=== PATIENT | female | born 1960 | race Caucasian/White ===

== ENCOUNTER 2017-12-04 08:48 | Day surgery (SDC) | payer OTHER ==
--- NOTE | 2017-12-01 11:59 | RAD REPORT ---
EXAM DESCRIPTION: RAD - Chest Pa And Lat (2 Views) - 12/01/2017 11:23 am CLINICAL HISTORY: Diabetes, hypertension, breast cancer Chest pain. COMPARISON: CHEST SINGLE VIEW dated 06/10/2011 FINDINGS: The lungs are clear. The heart is upper limit normal in size. Left-sided port catheter its tip in the SVC. No displaced fractures. IMPRESSION: No acute or concerning finding suspected.
[2017-12-01 12:47] LABS: Absolute Lymphocytes (CBC) 2.9 K/uL (0.7-4.9); Absolute Monocytes 0.5 K/uL (0.1-1.3); Absolute Neutrophil 4.6 K/uL (1.8-8.0); Basophils % 0.9 % (0-1.3); Eosinophils % 4.9 % (0-4.4); Hematocrit 42.3 % (36.0-45.0); Lymphocytes % 34.5 % (15.3-44.8); MCH 29.9 pg (27.0-35.0); MCV 88.1 fL (80-100); MPV 9.1 fL (7.6-11.3); Monocytes % 5.6 % (3.3-12.3)
[2017-12-01 12:49] LABS: BUN Blood Urea Nitrogen 13 mg/dL (6-20); Bicarbonate 24 mEq/L (21-31); Glucose Level 152 mg/dL (65-120); Potassium 4.6 mEq/L (3.6-5.0); Sodium Level 134 mEq/L (135-145)
--- NOTE | 2017-12-01 14:06 | EKG ---
Test Date: 2017-12-01 Test Time: 11:28:26 Qa Engineer: JOSE MARTIN MEASUREMENT RESULTS: Intervals: Rate: 81 HI: 170 QRSD: 86 QT: 388 QTc: 450 [place]: P: 17 HI: 170 QRS: -10 T: 0 INTERPRETIVE STATEMENTS: Sinus rhythm with premature atrial complexes with aberrant conduction Minimal voltage criteria for LVH, may be normal variant Borderline ECG No previous ECG available for comparison Electronically Signed On 12-01-17 14:05:46 CDT by Prashant Shah
--- OUTSIDE RECORDS SUMMARY | 2017-12-04 08:56 | XMS REPORT | Clinical Summary ---
:1960 Author Organization [facility] Address [address] [place] [address] Care Team Providers Name Role Phone Abhishek Churchill MD Primary Care Provider Allergies Active Allergy Reactions Severity Noted Date Comments Prochlorperazine Other (See Comments) High 05/05/2016 "hallucinations" Current Medications Prescription Sig. Disp. Refills Start Date End Date Status SYNTHROID 25 mcg tablet Take 1 tablet 11/02/2015 Active by mouth every evening. losartan (COZAAR) 100 Take 1 tablet 11/02/2015 Active MG tablet by mouth every evening. metFORMIN (GLUCOPHAGE) Take 1,000 mg 11/06/2015 Active 1000 MG tablet by mouth 2 (two) times a day. metoprolol succinate XL Take 50 mg by 11/02/2015 Active (TOPROL-XL) 50 MG 24 hr mouth 2 (two) tablet times a day. propranolol (INDERAL) Take 1 tablet 11/02/2015 Active 10 MG tablet by mouth every evening. liothyronine (CYTOMEL) Take 5 mcg by Active 5 MCG tablet mouth every evening. TRULICITY 1.5 mg/0.5 mL Inject 1.5 mg 3 05/17/2016 Active pen injector under the skin every 7 days. (On Monday) fluconazole (DIFLUCAN) Take 200 mg by Active 200 MG tablet mouth every evening. minocycline Take 100 mg by Active (MINOCIN,DYNACIN) 100 mouth 2 (two) MG capsule times a day as needed. loratadine (CLARITIN) Take 10 mg by Active 10 mg tablet mouth every evening. levoFLOXacin (LEVAQUIN) Take 500 mg by Active 500 MG tablet mouth every evening. cholecalciferol, Take 2,000 Active vitamin D3, (VITAMIN Units by mouth D3) 2,000 unit capsule every evening. capsule ascorbic acid, vitamin Take 1,000 mg Active C, (vitamin C) 1000 MG by mouth every tablet evening. guaiFENesin (MUCINEX) Take 1 tablet Active 1,200 mg tablet by mouth every extended release 12hr evening. ACETYLCYSTEINE (NAC Take 1 tablet Active ORAL) by mouth every evening. amLODIPine (NORVASC) 5 Take 1 tablet 30 tablet 11 10/31/2016 10/31/2017 mg tablet (5 mg total) by mouth daily. 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 Encounters Date Type Specialty Care Team Description 04/20/2017 Infusion Neurology Abhishek Churchill Common variable immunodeficiency (Primary Dx) 04/18/2017 Infusion Neurology Abhishek Churchill Common variable immunodeficiency (Primary Dx) 03/28/2017 Infusion Neurology Abhishek Chruchill Common variable immunodeficiency (Primary Dx) 03/22/2017 Infusion Neurology Abhishek Churchill Common variable immunodeficiency (Primary Dx) 02/08/2017 Infusion Neurology Abhishek Churchill Common variable immunodeficiency (Primary Dx) 02/06/2017 Infusion Neurology Abhishek Churchill Common variable immunodeficiency (Primary Dx) 01/05/2017 Infusion Neurology Abhishek Churchill Common variable immunodeficiency (Primary Dx) 01/02/2017 Infusion Neurology Abhishek Churchill Common variable immunodeficiency (Primary Dx) 12/05/2016 Infusion Neurology Abhishek Churchill Common variable immunodeficiency (Primary Dx) after 12/03/2016 Social History Tobacco Use Types Packs/Day Years Used Date Never Smoker Alcohol Use Drinks/Week oz/Week Comments No Sex Assigned at Date Recorded Not on file Last Filed Vital Signs Vital Sign Reading Time Taken Blood Pressure 138/71 04/20/2017 11:19 AM CDT Pulse 82 04/20/2017 11:19 AM CDT Temperature 36.2 C (97.1 F) 04/20/2017 11:19 AM CDT Respiratory Rate 16 04/20/2017 11:19 AM CDT Oxygen Saturation 98% 04/20/2017 11:19 AM CDT Inhaled Oxygen Concentration - - Weight 99.8 kg (220 lb) 04/20/2017 9:34 AM CDT Height 172.7 cm (5' 8") 04/20/2017 9:34 AM CDT Body Mass Index 33.45 04/20/2017 9:34 AM CDT Plan of Treatment Health Maintenance Due Date Last Done Comments CERVICAL CANCER SCREENING 02/06/1980 BREAST CANCER SCREENING 2009 COLON CANCER SCREENING 2009 SHINGRIX VACCINE (#1) 2009 INFLUENZA VACCINE 01/17/2018 Procedures Procedure Name Priority Date/Time Associated Diagnosis Comments ESTIMATED GFR Routine 04/18/2017 7:51 Results for this AM CDT procedure are in the results section. BASIC METABOLIC Routine 04/18/2017 7:51 Common variable Results for this PANEL AM CDT immunodeficiency procedure are in the results section. HEPATIC FUNCTION Routine 04/18/2017 7:51 Common variable Results for this PANEL AM CDT immunodeficiency procedure are in the results section. HC COMPLETE BLD Routine 04/18/2017 7:51 Common variable Results for this COUNT W/AUTO DIFF AM CDT immunodeficiency procedure are in the results section. ESTIMATED GFR Routine 03/22/2017 10:09 Results for this AM CDT procedure are in the results section. HEPATIC FUNCTION Routine 03/22/2017 10:09 Common variable Results for this PANEL AM CDT immunodeficiency procedure are in the results section. BASIC METABOLIC Routine 03/22/2017 10:09 Common variable Results for this PANEL AM CDT immunodeficiency procedure are in the results section. HC COMPLETE BLD Routine 03/22/2017 10:08 Common variable Results for this COUNT W/AUTO DIFF AM CDT immunodeficiency procedure are in the results section. POTASSIUM LEVEL Routine 02/08/2017 10:23 Common variable Results for this AM CDT immunodeficiency procedure are in the results section. ESTIMATED GFR Routine 02/06/2017 10:58 Results for this AM CDT procedure are in the results section. HEPATIC FUNCTION Routine 02/06/2017 10:58 Common variable Results for this PANEL AM CDT immunodeficiency procedure are in the results section. BASIC METABOLIC Routine 02/06/2017 10:58 Common variable Results for this PANEL AM CDT immunodeficiency procedure are in the results section. HC COMPLETE BLD Routine 02/06/2017 10:58 Common variable Results for this COUNT W/AUTO DIFF AM CDT immunodeficiency procedure are in the results section. ESTIMATED GFR Routine 01/02/2017 10:27 Results for this AM CDT procedure are in the results section. HEPATIC FUNCTION Routine 01/02/2017 10:27 Common variable Results for this PANEL AM CDT immunodeficiency procedure are in the results section. BASIC METABOLIC Routine 01/02/2017 10:27 Common variable Results for this PANEL AM CDT immunodeficiency procedure are in the results section. HC COMPLETE BLD Routine 01/02/2017 10:27 Common variable Results for this COUNT W/AUTO DIFF AM CDT immunodeficiency procedure are in the results section. after 12/03/2016 Results Estimated GFR (04/18/2017 7:51 AM)Only the most recent of4 resultswithin the time period is included. GFR Non Af Amer >90 mL/min/1.73 m2 [facility] DEPARTMENT OF PATHOLOGY AND GENOMIC MEDICINE GFR Af Amer >90 mL/min/1.73 m2 [facility] DEPARTMENT OF Comment: PATHOLOGY AND GENOMIC Chronic kidney disease: <60 mL/min/1.73m2 MEDICINE Kidney failure: <15 mL/min/1.73m2 The estimated GFR is calculated from the IDMS-traceable Modification of Diet in Renal Disease Equation. The accuracy of the calculation is poor when the creatinine is normal. Calculated values >90 mL/min/1.73m2 are not reported. This equation has not been validated in children (<18 years), women, the elderly (>70 years), or ethnic groups other than Caucasians and Americans. Specimen Plasma specimen Performing Organization Address City/State/Zipcode Phone Number [facility] DEPARTMENT OF PATHOLOGY AND [address] [place] [address] [facility] CBC with platelet and differential (04/18/2017 7:51 AM)Only the most recent of4 resultswithin the time period is included. WBC 8.11 4.50 - 11.00 k/uL [facility] DEPARTMENT OF PATHOLOGY AND GENOMIC MEDICINE RBC 4.26 4.20 - 5.50 m/uL [facility] DEPARTMENT OF PATHOLOGY AND GENOMIC MEDICINE HGB 12.7 12.0 - 16.0 g/dL [facility] DEPARTMENT OF PATHOLOGY AND GENOMIC MEDICINE HCT 38.4 37.0 - 47.0 % [facility] DEPARTMENT OF PATHOLOGY AND GENOMIC MEDICINE MCV 90.1 82.0 - 100.0 fL [facility] DEPARTMENT OF PATHOLOGY AND GENOMIC MEDICINE MCH 29.8 27.0 - 34.0 pg [facility] DEPARTMENT OF PATHOLOGY AND GENOMIC MEDICINE MCHC 33.1 31.0 - 37.0 g/dL [facility] DEPARTMENT OF PATHOLOGY AND GENOMIC MEDICINE RDW - SD 42.1 37.0 - 55.0 fL [facility] DEPARTMENT OF PATHOLOGY AND GENOMIC MEDICINE MPV 10.4 8.8 - 13.2 fL [facility] DEPARTMENT OF PATHOLOGY AND GENOMIC MEDICINE Platelet count 315 150 - 400 k/uL [facility] DEPARTMENT OF PATHOLOGY AND GENOMIC MEDICINE Nucleated RBC 0.00 /100 WBC [facility] DEPARTMENT OF PATHOLOGY AND GENOMIC MEDICINE Neutrophils 57.5 39.0 - 69.0 % [facility] DEPARTMENT OF PATHOLOGY AND GENOMIC MEDICINE Lymphocytes 29.8 25.0 - 45.0 % [facility] DEPARTMENT OF PATHOLOGY AND GENOMIC MEDICINE Monocytes 6.7 0.0 - 10.0 % [facility] DEPARTMENT OF PATHOLOGY AND GENOMIC MEDICINE Eosinophils 4.2 0.0 - 5.0 % [facility] DEPARTMENT OF PATHOLOGY AND GENOMIC MEDICINE Basophils 1.4 (H) 0.0 - 1.0 % [facility] DEPARTMENT OF PATHOLOGY AND GENOMIC MEDICINE Immature granulocytes 0.4Comment: 0.0 - 1.0 % [facility] DEPARTMENT OF "Immature PATHOLOGY AND GENOMIC granulocytes" MEDICINE (promyelocytes, myelocytes, metamyelocytes) Specimen Blood Performing Organization Address City/State/Zipcode Phone Number [facility] DEPARTMENT OF PATHOLOGY AND [address] [place] [address] GENOMIC MEDICINE Hepatic function panel (04/18/2017 7:51 AM)Only the most recent of4 resultswithin the time period is included. Albumin 3.1 (L) 3.5 - 5.0 g/dL [facility] DEPARTMENT OF PATHOLOGY AND GENOMIC MEDICINE Total bilirubin 0.4 0.0 - 1.2 mg/dL [facility] DEPARTMENT OF PATHOLOGY AND GENOMIC MEDICINE Bilirubin direct <0.2 0.0 - 0.3 mg/dL [facility] DEPARTMENT OF PATHOLOGY AND GENOMIC MEDICINE Alkaline phosphatase 70 35 - 104 U/L [facility] DEPARTMENT OF PATHOLOGY AND GENOMIC MEDICINE Protein 6.7 6.3 - 8.3 g/dL [facility] DEPARTMENT OF Comment: PATHOLOGY AND GENOMIC [place] 4.6-7.0 g/dL MEDICINE 1 week 4.4-7.6 g/dL 7 months-1year5.1-7.3 g/dL 1-2 years5.6-7.5 g/dL >3 years6.0-8.0 g/dL 18-150 6.3-8.3 g/dL ALT 30 5 - 50 U/L [facility] DEPARTMENT OF PATHOLOGY AND GENOMIC MEDICINE AST 28 10 - 35 U/L [facility] DEPARTMENT OF PATHOLOGY AND GENOMIC MEDICINE Specimen Plasma specimen Performing Organization Address City/[facility] Phone Number [facility] DEPARTMENT OF PATHOLOGY AND [address] [place] [id number] [facility] Basic metabolic panel (04/18/2017 7:51 AM)Only the most recent of4 resultswithin the time period is included. Sodium 137 135 - 148 mEq/L [facility] DEPARTMENT OF PATHOLOGY AND GENOMIC MEDICINE Potassium 3.6 3.5 - 5.0 mEq/L [facility] DEPARTMENT OF PATHOLOGY AND GENOMIC MEDICINE Chloride 100 98 - 112 mEq/L [facility] DEPARTMENT OF PATHOLOGY AND GENOMIC MEDICINE CO2 21 (L) 24 - 31 mEq/L [facility] DEPARTMENT OF PATHOLOGY AND GENOMIC MEDICINE Anion gap 16 (H) 7 - 15 mEq/L [facility] DEPARTMENT OF PATHOLOGY Comment: AND [facility] Starting from September , anion gap calculation no longer incorporates potassium. Please note the change. BUN 11 6 - 20 mg/dL [facility] DEPARTMENT OF PATHOLOGY AND GENOMIC MEDICINE Creatinine 0.6 0.5 - 0.9 mg/dL [facility] DEPARTMENT OF PATHOLOGY AND GENOMIC MEDICINE Glucose 164 (H) 65 - 99 mg/dL [facility] DEPARTMENT OF PATHOLOGY AND GENOMIC MEDICINE Calcium 8.0 (L) 8.3 - 10.2 mg/dL [facility] DEPARTMENT OF PATHOLOGY AND GENOMIC MEDICINE Specimen Plasma specimen Performing Organization Address [facility] Phone Number [facility] DEPARTMENT OF PATHOLOGY AND [address] [place] [phone] [facility] Potassium level (02/08/2017 10:23 AM) Potassium 3.4 (L) 3.5 - 5.0 mEq/L [facility] DEPARTMENT OF PATHOLOGY AND GENOMIC MEDICINE Specimen Plasma specimen Performing Organization Address City/[facility] Phone Number [facility] DEPARTMENT OF PATHOLOGY AND [address] [place] [phone] GENOMIC MEDICINE after 12/03/2016 Insurance Payer Benefit Plan / Group Subscriber ID Type Phone Address AETNA AETNA HMO,POS,EPO, MC/EC xxxxxxxxxx O MEDICARE MEDICARE PART A AND B xxxxxxxxxx Medicare [place], [place] Work: [address] [facility] E y [phone] DR Christianson [place], [place] Home: [phone] [facility]
[2017-12-04] MEDS ORDERED: LIDOCAINE 2% MPF 5 ML VIAL ONE (09:00)
[2017-12-04] MEDS ORDERED: PROPOFOL 200 MG/20 ML VIAL IV ONE (09:00)
[2017-12-04] MEDS ORDERED: MIDAZOLAM HCL 2 MG/2 ML INJ ONE (09:00)
[2017-12-04] MEDS ORDERED: NA CHLORIDE 0.9% 1,000 ML ONE (09:04)
[2017-12-04] MEDS ORDERED: CEFAZOLIN/SWI 1gm 1 GM/10 ML SYR ONE (09:04)
[2017-12-04] MEDS ORDERED: BUPIVACAINE 0.5% PF 10 ML VIAL ONE (09:57)
[2017-12-04] MEDS ORDERED: FENTANYL CITR 100 MCG/2 ML ONE (10:01)
--- NOTE | 2017-12-04 10:17 | P.BOP ---
Preoperative diagnosis: breast cancer Postoperative diagnosis: same Primary procedure: Removal of portacath Secondary procedure: same Estimated blood loss: <10cc Specimen: intact portacath Findings: as above Anesthesia: General Complications: None Transferred to: Recovery Room Condition: Good
--- NOTE | 2017-12-04 21:41 | OP ---
Date of Procedure: 12/04/2017 Surgeon: Raul Dubois MD Delivery Stock Clerk: None. Preoperative Diagnosis: History of breast cancer, autoimmune disorder. Postoperative Diagnosis: History of breast cancer, autoimmune disorder. Procedure: Removal of Port-A-Cath. Estimated Blood Loss: Less than 10 cc. Specimen: Intact Port-A-Cath. Anesthesia: MAC plus local. Indications: This is a case of a 57-year-old patient, comes to us with the above diagnosis. Fully e xplained the benefits, alternatives, and risks of removal of Port-A-Cath which include, but not limit ed to infection, bleeding, damage to adjacent structures, anesthesia complication, nonhealing wound, PE, MT and even . She also understands this may not relieve any symptoms. She might need more than one surgical intervention. She understood and signed consent. Description Of Procedure: The patient was brought to the operating room, placed in supine position. Anesthesia was done without complication. Chest area was prepped and draped in a sterile fashion. Local anesthesia was applied followed by sharp incision of the skin on a previous incision. Incision was carried down to the subcutaneous tissue. We noticed a Port-A-Cath. This disconnected from the rest of the subcutaneous tissue and then after that, pull it gently with no resistance. The Port-A-C ath was removed intact. The area was irrigated. Subcutaneous tissue was closed with 3-0 chromic and skin in a subcuticular fashion with 3-0 chromic. The patient tolerated the procedure well. The pat ient was sent to recovery room in stable condition. DISCHARGE SUMMARY Diagnosis: History of breast cancer, history of autoimmune disease. Procedure: Removal of Port-A-Cath. Disposition: Home. Activity: As tolerated. No heavy lifting. Followup: Follow up in my office in 1 week. Call for appointment on [phone]. Keep area dry for 48 hours, then may shower. Keep Steri-Strips intact. Medications: Include Tylenol No. 3 q.4 hours p.r.n. pain. PAUL/MAXIMILIANO Voice ID: [id number] Report ID: [id number]
== END 2017-12-04 11:45 | disposition home or self-care (01) ==
LOC: OR 08:48
PROVIDERS: ATTEND Surgery
PROC: 0JPT0WZ Removal of Totally Implantable Vascular Access Device from Trunk Subcutaneous Tissue and Fascia, Open Approach (ICD-10-PCS; principal; 2017-12-04 10:00)
DX: Z45.2 Encounter for adjustment and management of vascular access device (principal); Z85.3 Personal history of malignant neoplasm of breast; D89.89 Other specified disorders involving the immune mechanism, not elsewhere classified; E11.9 Type 2 diabetes mellitus without complications; I10 Essential (primary) hypertension; E07.9 Disorder of thyroid, unspecified; K21.9 Gastro-esophageal reflux disease without esophagitis; Z90.11 Acquired absence of right breast and nipple; Z86.61 Personal history of infections of the central nervous system; Z82.49 Family history of ischemic heart disease and other diseases of the circulatory system; Z80.9 Family history of malignant neoplasm, unspecified
CPT/HCPCS: 36415; 71046; 80048; 82962; 85025; 88300; 93005; J0690; J2250; J3010; J7030

== ENCOUNTER 2020-06-04 23:24 | Inpatient (IN) | payer OTHER ==
--- OUTSIDE RECORDS SUMMARY | 2020-06-05 00:42 | XMS REPORT | Summary of Care ---
:1960 Author Organization [facility] - Health Address [address] [place] [address] Care Team Providers Name Role Phone Drake Thomas MD Primary Care Provider Encounter Details Date Type Department Care Team Description 03/09/2020 Orders Only [facility] Doctor Unassigned, No [address] [facility] [place] [address] [address] [place] [address] Allergies Active Allergy Reactions Severity Noted Date Comments Morphine Rash High 06/21/2019 Prochlorperazine Other - See comments High 05/05/2016 "epps llucinations" "hallucinations " documented as of this encounter (statuses as of 03/09/2020) Medications Medication Sig Dispensed Refills Start End Date Status Date methylPREDNISolone Take 21 tablets by 21 Each 0 Active (MEDROL DOSE-JL) 4 mg mouth 6 tablets SEE-INSTRUCTIONS. follow package directions albuterol (PROVENTIL) Inhale 3 mL every 4 20 mL 0 05/27/20 1 Active 2.5 mg /3 mL (0.083 %) (four) hours. October 22 nebulizer solution also nebulize one extra every 6 hours. LANSOPRAZOLE (PREVACID Take by mouth. 0 Active ORAL) LEVOTHYROXINE SODIUM Take by mouth. 0 Active (SYNTHROID ORAL) LIOTHYRONINE SODIUM Take by mouth. 0 Active (LIOTHYRONINE ORAL) metoprolol succinate XL Take 50 mg by mouth 0 Active 50 mg 24 hr tablet 2 (two) times daily. LOSARTAN POTASSIUM Take by mouth. 0 Active (LOSARTAN ORAL) PROPRANOLOL HCL Take by mouth. 0 Active (PROPRANOLOL ORAL) immune globulin IV 5 500 mg by IV 0 Active gram/50 mL (10 %) Infusion route once injection now. budesonide-formoterol Inhale 2 Puffs 2 10.2 g 1 Active (SYMBICORT) 160-4.5 (two) times daily. 8 mcg/actuation inhaler levalbuterol 45 Inhale 1-2 Puffs 15 g 0 Active mcg/actuation inhaler every 4 (four) 8 hours as needed for Wheezing. TRULICITY 1.5 mg/0.5 mL INJECT 3 Active PnIj SUBCUTANEOUSLY 8 DIRECTED ONCE WEEKLY amLODIPine 5 mg tablet TK 1 T PO D 11 Active 8 METFORMIN 1,000 mg TAKE 1 TABLET BY 180 tablet 0 Active tablet MOUTH TWICE DAILY 8 WITH MEALS mupirocin 2 % ointment Apply to area(s) 0 Active daily. 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 Rhinitis, unspecified chronicity, unspecified type Recurrent sinusitis 05/01/2017 Non-allergic rhinitis 05/01/2017 Obesity (BMI 30-39.9) 05/27/2016 Diabetes mellitus documented as of this encounter (statuses as of 03/09/2020) Immunizations Name Administration Dates Next Due Influenza Virus Vaccine Quad IM 3+ YRS 05/01/2017 Pneumococcal Polysaccharide, PPSV23 (PNEUMOVAX) 05/01/2017 TDAP 05/01/2017 documented as of this encounter Social History Tobacco Use Types Packs/Day Years Used Date Never Smoker Smokeless Tobacco: Never Used Alcohol Use Drinks/Week oz/Week Comments No Sex Assigned at Date Recorded Not on file documented as of this encounter Last Filed Vital Signs Not on filedocumented in this encounter Plan of Treatment Date Type Specialty Care Team Description 03/11/2020 Laboratory Only Clinical Medical Zeus Samaniego MD [address] [phone] Laboratory Only, Adc Test 03/12/2020 Hospital Surgery Zeus Samaniego Encounter MD [facility] [address] [place] [phone] 03/12/2020 Anesthesia Event Surgery David Arellano, [address] [phone] 03/12/2020 Surgery Surgery Zeus Samaniego PHACOEMULSIFIC ATION OF MD [place] CATARACT WITH INTRAOCULAR [address] LENS IMPLANT [address] [place] [phone] Health Maintenance Due Date Last Done Comments HEPATITIS C (HCV) SCREEN 1960 HgA1C 02/06/1960 EYE EXAM 1969 LDL-C 1969 URINE MICROALBUMIN 1969 Depression Screening 1971 FOOT EXAM 1977 PAP SMEAR 02/06/1980 Breast Cancer Screening 1999 (MAMMOGRAM) COLON CANCER SCREENING ANNUAL 2009 FIT/FOBT COLON CANCER SCREENING FIT DNA 2009 EVERY 3 YEARS COLON CANCER SCREENING 2009 SIGMOIDOSCOPY EVERY 5 YEARS Zoster Recombinant Vaccine 2009 (SHINGRIX) (1 of 2) CREATININE (SERUM) 05/27/2017 05/27/2016 INFLUENZA VACCINE (#1) 2020 05/15/2018, 05/01/2017 COLONOSCOPY 03/19/2024 03/19/2014 Colorectal Cancer Screening 03/19/2024 DTaP,Tdap,and Td Vaccines (2 - 05/01/2027 05/01/2017 Td) PNEUMOCOCCAL 0-64 YEARS Aged Out 05/01/2017 No longe r eligible based COMBINED SERIES on patient's age to complete this to pic documented as of this encounter Procedures Procedure Name Priority Date/Time Associated Diagnosis Comme nts ASSIGNMENT OF BENEFITS Routine 03/09/2020 1:22 PM CDT documented in this encounter Results Not on filedocumented in this encounter Insurance Payer Benefit Plan / Subscriber ID Effective Dates Phone Addre ss Type Group HUMANA - HUMANA [id number] 2019-[facility] Adv MANAGED MEDICARE t FFS MEDICARE documented as of this encounter
--- OUTSIDE RECORDS SUMMARY | 2020-06-05 00:42 | XMS REPORT | Continuity of Care Document ---
:1960 Author Organization [facility] t Address [address] [place] [address] Dr. Badillo. [address] [place] [address] Care Team Providers Name Role Phone Rita RODRÍGUEZ Primary Care Physician Unavailable Lab, Fam Pob I Attending Clinician Unavailable Rommel Samaniego MD Attending Clinician Only, Test Attending Clinician Unavailable Pob, Lab Main Attending Clinician Unavailable Doctor Unassigned, Name Attending Clinician Unavailable OSKAR Attending Clinician Unavailable ARMAND Attending Clinician Unavailable Kassi Richards PT Attending Clinician Unavailable Gaston ALICEA, Preston Attending Clinician Unavailable TEE Attending Clinician Unavailable KARLI EDWARDS Attending Clinician Unavailable Rita RODRÍGUEZ Attending Clinician Unavailable Brown Connell MD Attending Clinician Rommel Samaniego MD Admitting Clinician OSKAR Admitting Clinician Unavailable Payers Payer Name Policy Type Policy Number Effective Date Expiration Date S ource HUMANA CHOICE [id number] 2019 MEDICARE PPO 00:00:00 Problems This patient has no known problems. Allergies, Adverse Reactions, Alerts This patient has no known allergies or adverse reactions. Medications This patient has no known medications. Procedures This patient has no known procedures. Encounters Start End Encounter Admission Attending Care Care Encounter Source Date/Time Date/Time Type Type Clinicians Facility Department ID 2020-05-25 2020-05-25 Laboratory Lab, Adc [facility] [id number] 13:26:05 13:46:05 Only Fam Pob I [facility] [id number] [place] [id number] Professio [phone] nal 044 Office Building One 2020-03-12 2020-03-12 Hospital Danette, [facility] [id number] 07:20:00 09:40:00 Encounter Zeus Karley [id number] Rommel Lomas [id number] Surgical [id number] Gustine 07 2020-03-11 2020-03-11 Laboratory Only, [facility] [id number] 09:20:50 09:35:50 Only Test [place] [id number] [place] [id number] [place] [id number] 2020-03-09 2020-03-09 Lpn Home Health Jackelin, [facility] [id number] 13:36:59 13:51:59 Visit Lab Main [place] [id number] [place] [id number] Professio [phone] [facility] 353 [facility] 2020-03-09 2020-03-09 Orders Doctor ELEANOR [id number] 00:00:00 00:00:00 Only Unassigned, CLIFF [id number] [place] [facility] [id number] [id number] 2020-02-19 2020-02-19 Outpatient JAGDEEP SCHMITT [facility] [id number] [place] 00:00:00 00:00:00 298 Method i 2020-02-12 2020-02-12 Outpatient ARMAND [facility] [id number] [place] 00:00:00 00:00:00 ALDONA [address] 2020-01-30 2020-01-30 Ancillary Maurice [facility] [id number] 13:05:44 16:44:10 Visit Prabha Solitario [place] [id number] [place] [id number] Professio [phone] nal 179 Building 2020-01-28 2020-01-28 Ancillary Gaston [facility] [id number] 13:44:41 14:44:41 Visit Charisse Preston Crandall [id number] [place] [id number] Professio [phone] [facility] 179 [facility] 2020-01-23 2020-01-23 Ancillary Maurice [facility] [id number] 15:40:48 17:22:43 Visit Prabha [place] [id number] [place] [id number] Professio [phone] [facility] 179 [facility] 2020-01-20 2020-01-20 Ancillary Maurice [facility] [id number] 15:35:01 16:35:01 Visit Prabha Crandall [id number] [place] [id number] Professio [phone] [facility] 179 [facility] 2020-01-16 2020-01-16 Outpatient TEE [facility] [id number] [place] 00:00:00 00:00:00 MABEL Levy Method i 2020-01-16 2020-01-16 Orders Doctor ELEANOR [id number] 00:00:00 00:00:00 Only Unassigned, CLIFF [id number] [place] [facility] [id number] [id number] [id number] 2020-01-03 2020-01-03 Outpatient JAMA EDWARDS MDA MDA [id number] 00:00:00 00:00:00 TONIA ojeda 2020-01-01 2020-01-01 Outpatient JAGDEEP SCHMITT [facility] [id number] [place] 00:00:00 00:00:[address] 2019-12-27 2019-12-27 Outpatient JAMA RODRÍGUEZ MDA MDA [id number] 00:00:00 00:00:00 [place] ojeda 2019-12-26 2019-12-26 Outpatient JAGDEEP SCHMITT [facility] [id number] [place] 00:00:00 00:00:[address] 2019-12-23 2019-12-23 Outpatient JAGDEEP SCHMITT [facility] [id number] [place] 00:00:00 00:00:[address] 2019-12-11 2019-12-11 Outpatient JAGDEEP SCHMITT [facility] [id number] [place] 00:00:00 00:00:[address] 2019-08-21 2019-08-21 Outpatient JAGDEEP SCHMITT [facility] 2100 [id number] [place] 00:00:00 00:00:00 418 Method i 2019-08-21 2019-08-21 Outpatient JAGDEEP SCHMITT [facility] 2100 [id number] [place] 00:00:00 00:00:00 201 Method i 2019-08-21 2019-08-21 Outpatient JAGDEEP SCHMITT [facility] 2100 [id number] [place] 00:00:00 00:00:00 419 Method i 2019-07-18 2019-07-18 Orders Doctor ELEANOR [id number] 00:00:00 00:00:00 Only UnassignedCLIFF [id number] [place] [facility] [id number] 009 2019-02-15 2019-02-15 Telephone Becki WYCESAR [id number] 00:00:00 00:00:00 Jeannie SALINAS [id number] [facility] [id number] [id number] 2019-02-12 2019-02-12 Orders Doctor ELEANOR [id number] 00:00:00 00:00:00 Only UnassignedCLIFF [id number] [facility] [id number] [id number] Results This patient has no known results.
--- OUTSIDE RECORDS SUMMARY | 2020-06-05 00:42 | XMS REPORT | Summary of Care ---
:1960 Author Organization [facility] - [facility] Address [address] [place] [address] Care Team Providers Name Role Phone Venice Lamb Primary Care Provider Reason for Visit Reason Comments LAB WORK Auth/Cert Status Reason Specialty Diagnoses / Procedures Referred By Niru jerome Referred To Contact Phlebotomy Adc Pob Lab Dr wren Professional O ffice Building [address] [facility] [address], [address] [place] [address] Phone: Fax: Encounter Details Date Type Department Care Team Description 03/09/2020 Quality Control Microbiologist Visit [facility] Danette, Zeus wilson MD [address] [address] Pre-operative Professional Office Pob, Adc Lab Main clearance (Primary Building Phlebotomy Dx) Lab Professional Office Building [address] [place] [address] , [address] [place] [address] Allergies Active Allergy Reactions Severity Noted Date [...] Signs Not on filedocumented in this encounter Nursing Notes Arelis Briggs - 03/09/2020 1:30 PM CDT Venipuncture collection performed by clean technique on the left wrist. Total of 2 attempts were made. Slight pressure and a bandage/dressing were applied to the site(s). The patient experienced no complications. The following specimens were processed according to instructions and sent to [facility] laboratories per lab order on today: LT BLUE SST 1 RED LAV 1 PPT DK GREEN (LiHep) DK GREEN (SodH) VILLAREAL DK BLUE (K2) DK BLUE (S) ACD Blood Culture NIPT/NTD documented in this encounter Plan of Treatment Date Type Specialty Care Team Description 03/11/2020 Laboratory Only Clinical Medical Zeus Samaniego MD [address] [address] Laboratory Only, Adc Test 03/12/2020 Hospital Surgery Zeus Samaniego Encounter MD Rommel [address] [address] 03/12/2020 Anesthesia Event Surgery David Arellano, [address] [phone] 03/12/2020 Surgery Surgery Zeus Samaniego PHACOEMULSIFIC ATION OF MD Rommel CATARACT WITH INTRAOCULAR [address] [facility]ANT [facility] [address] [place] [address] Name Type Priority Associated Diagnoses Order S chedule CBC WITH DIFF LAB Routine Pre-operative clearance Exp ected: 03/09/2020, Expires: 2020 COMP. METABOLIC PANEL LAB Routine Pre-operative clear ance Expected: 03/09/2020, ([id number]) Expires: 2020 Health Maintenance Due Date Last Done Comments [...] on patient's age to complete this to [facility] documented as of this encounter Results Not on filedocumented in this encounter Visit Diagnoses Diagnosis Pre-operative clearance - Primary Preoperative examination, unspecified documented in this encounter Insurance Payer Benefit Plan / Subscriber ID Effective Dates Phone Addre ss Type Group HUMANA - HUMANA [id number] 2019-[facility] MANAGED MEDICARE t FFS MEDICARE documented as of this encounter
--- OUTSIDE RECORDS SUMMARY | 2020-06-05 00:43 | XMS REPORT | Summary of Care ---
:1960 Author Organization [facility] Address [address] [place] [address] Care Team Providers Name Role Phone Venice Lamb Primary Care Provider Reason for Visit Reason Comments LAB WORK Auth/Cert Status Reason Specialty Diagnoses / Referred By Referred To Procedures Contact Contact Clinical Medical Diagnoses Pre-op testing [facility] Lab Laboratory Procedures COVID-19 (ID NOW RAPID TESTING) [address] [place] [address] Encounter Details Date Type Department Care Team Description 03/11/2020 Laboratory Only [facility] [place]us Samaniego [place] [address] [address] Pre-operative Phlebotomy Only, [facility] Test clearance (Primary Lab-[place] Dx) [address] [place] [address] Allergies Active Allergy Reactions Severity Noted Date Comments Morphine Rash High 06/21/2019 Prochlorperazine Other - See comments High 05/05/2016 "epps llucinations" "hallucinations " documented as of this encounter (statuses as of 03/11/2020) Medications Medication Sig Dispensed Refills Start End [...] as of this encounter (statuses as of 03/11/2020) Active Problems Problem Noted Date Rash 05/29/2017 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 Rhinitis, unspecified chronicity, unspecified type Recurrent sinusitis 05/01/2017 Non-allergic rhinitis 05/01/2017 Obesity (BMI 30-39.9) 05/27/2016 Diabetes mellitus documented as of this encounter (statuses as of 03/11/2020) Immunizations Name Administration Dates Next Due Influenza Virus Vaccine Quad IM 3+ YRS 05/01/2017 Pneumococcal Polysaccharide, PPSV23 (PNEUMOVAX) 05/01/2017 TDAP 05/01/2017 documented as of this encounter Social History Tobacco Use Types Packs/Day Years Used Date Never Smoker Smokeless Tobacco: Never Used Alcohol Use Drinks/Week oz/Week Comments No Sex Assigned at Date Recorded Not on file COVID-19 Exposure Response Date Recorded In the last month, have you been in contact with No / Unsure 03/11/2020 9:20 AM CDT someone who was confirmed or suspected to have Coronavirus / COVID-19? documented as of this encounter Last Filed Vital Signs Not on filedocumented in this encounter Nursing Notes Peg Prajapati - 03/11/2020 11:45 AM CDTcovid documented in this encounter Plan of Treatment Date Type Specialty Care Team Description 03/12/2020 Hospital Encounter Surgery Zeus Samaniego MD [address] [facility] [address] [place] [phone] 03/12/2020 Anesthesia Event Surgery David Arellano C [address] [phone] 03/12/2020 Surgery Surgery Zeus Samaniego PHACOEMULSIFIC ATION OF MD Rommel CATARACT WITH INTRAOCULAR [address] LENS IMPLANT [facility] [address] [place] [address] Name Type Priority Associated Diagnoses Order S chedule COVID-19 (ID NOW RAPID LAB Routine Pre-operative braeden pandya Expected: 03/11/2020, TESTING) Expires: 2020 Health Maintenance Due Date Last [...] Recombinant Vaccine 2009 (SHINGRIX) (1 of 2) INFLUENZA VACCINE (#1) 2020 05/15/2018, 05/01/2017 CREATININE (SERUM) 03/09/2021 03/09/2020, 05/27/2016 COLONOSCOPY 03/19/2024 03/19/2014 Colorectal Cancer Screening 03/19/2024 DTaP,Tdap,and Td Vaccines (2 - 05/01/2027 05/01/2017 Td) PNEUMOCOCCAL 0-64 YEARS Aged Out 05/01/2017 No longe r eligible based COMBINED SERIES on patient's age to complete this to pic documented as of this encounter Results Not on filedocumented in this encounter Visit Diagnoses Diagnosis Pre-operative clearance - Primary Preoperative examination, unspecified documented in this encounter Insurance Payer Benefit Plan / Subscriber ID Effective Dates Phone Addre ss Type Group HUMANA - HUMANA [id number] 2019-[facility] Adv MANAGED MEDICARE t FFS MEDICARE documented as of this encounter
--- OUTSIDE RECORDS SUMMARY | 2020-06-05 00:43 | XMS REPORT | Summary of Care ---
:1960 Author Organization [facility] - Health Address [address] [place] [address] Care Team Providers Name Role Phone Venice Lamb Primary Care Provider Reason for Visit Auth/Cert Status Reason Specialty Diagnoses / Procedures Referred By Niru ontact Referred To Contact Surgery Diagnoses Age-related nuclear cataract, left eye age related cataract H25.12 Adc Pre/Pacu/Post Procedures SC XCAPSL CTRC RMVL INSJ IO LENS PROSTH W/O ECP PHACOEMULSIFICATION OF CATARACT WITH INTRAOCULAR LENS IMPLANT 71000 - SC XCAPSL CTRC RMVL INSJ IO LENS PROSTH W/O ECP [address] [place] [address] 4 3560 Phone: Fax: Encounter Details Date Type Department Care Team Description 03/12/2020 [facility] Rommel [address] [place] [address] Dr easley [address] [place] [address] [place] [address] [place] [address] Allergies Active Allergy Reactions Severity Noted Date Comments Morphine Rash High 06/21/2019 Prochlorperazine Other - See comments High 05/05/2016 "epps llucinations" "hallucinations " documented as of this encounter (statuses as of 03/12/2020) Medications Medication Sig Dispensed Refills Start End [...] as of this encounter (statuses as of 03/12/2020) Active Problems Problem Noted Date Rash 05/29/2017 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 documented as of this encounter Last Filed Vital Signs Vital Sign Reading Time Taken Comments Blood Pressure 136/76 03/12/2020 9:25 AM CDT Pulse 87 03/12/2020 9:21 AM CDT Temperature 37.1 C (98.8 F) 03/12/2020 9:09 AM CDT Respiratory Rate 15 03/12/2020 9:21 AM CDT Oxygen Saturation 99% 03/12/2020 9:21 AM CDT Inhaled Oxygen Concentration - - Weight 97.1 kg (214 lb) 02/26/2020 9:00 AM CDT Height 172.7 cm (5' 8") 02/26/2020 9:00 AM CDT Body Mass Index 32.54 02/26/2020 9:00 AM CDT documented in this encounter Discharge Summaries Zeus Samaniego MD - 03/12/2020 8:35 AM CDTCONDITION AT DISCHARGE: Patient was discharged from the facility in stable condition. Please see swathi stephens instructions. FOLLOW UP CARE: See post op instructions. DISCHARGE DISPOSITION: HOME DISCHARGE INSTRUCTIONS GIVEN TO: PATIENT documented in this encounter Discharge Instructions Alexa Dougherty RN - 03/12/2020 documented in this encounter H&P Notes Zeus Samaniego MD - 03/12/2020 8:35 AM CDTH&P was reviewed and patient was examined and there was no change in patients condition. documented in this encounter Procedure Notes Zeus Samaniego MD - 03/12/2020 8:35 AM CDTBrief Operative Note Date Of Operation: 03/12/2020 Surgeons Name: ZEUS SAMANIEGO Pre Operative Diagnosis: CATARACT LEFT EYE Post Operative Diagnosis: CATARACT LEFT EYE Operation Performed: UNDER LOCAL ANESTHESIA THE EYE WAS/WERE EXPOSED USING A LID SPECULUM. ENTRY INTO THE EYE THROUGH A MINIMAL INCISION WS MADE FOR THE SURGICAL REMOVAL OF THE NATURAL LENS (CATARACT) AND AN ARTIFICIAL INTRAOCULAR LENS IMPLANT WAS INSERTED WITHOUT COMPLICATION. Patient's Condition: PATIENT WAS DISCHARGED FROM THE FACILITY IN STABLE CONDITION. PLEASE SEE THE PATIENT DISCHARGE INSTRUCTIONS. Please see dictated operative report for additional detail. documented in this encounter Plan of Treatment Health Maintenance Due Date Last Done Comments HEPATITIS C (HCV) SCREEN 1960 HgA1C 02/06/1960 EYE EXAM 1969 LDL-C 1969 URINE MICROALBUMIN 1969 FOOT EXAM 1977 PAP SMEAR 02/06/1980 Breast Cancer Screening 1999 (MAMMOGRAM) COLON CANCER SCREENING ANNUAL 2009 FIT/FOBT COLON CANCER SCREENING FIT DNA 2009 EVERY 3 YEARS COLON CANCER SCREENING 2009 SIGMOIDOSCOPY EVERY 5 YEARS Zoster Recombinant Vaccine 2009 (SHINGRIX) (1 of 2) INFLUENZA VACCINE (#1) 2020 05/15/2018, 05/01/2017 CREATININE (SERUM) 03/09/2021 03/09/2020, 05/27/2016 Depression Screening 03/12/2021 03/12/2020 COLONOSCOPY 03/19/2024 03/19/2014 Colorectal Cancer Screening 03/19/2024 DTaP,Tdap,and Td Vaccines (2 - 05/01/2027 05/01/2017 Td) PNEUMOCOCCAL 0-64 YEARS Aged Out 05/01/2017 No longe r eligible based COMBINED SERIES on patient's age to complete this to pic documented as of this encounter Implants Implanted Type Area Manager Adobe Device Shelf Model / Serial Identifier Expiration / Lot Date Lens, Omkar #[id number] - [id number] LENS Left: Eye Omkar 02/17/2024 [id number] / Implanted: Qty: 1 on 03/12/2020 by Zeus Samaniego MD at [facility] 7 [id number] / N/A documented as of this encounter Results Not on filedocumented in this encounter Administered Medications Medication Order MAR Action Action Date Dose Rate Site balanced salt soln no.2 irrig. Given 03/12/2020 8:57 AM CDT 500 mL (BSS) ophthalmic solution PRN, Starting Clare 03/12/20 at 0857, Until Discontinued, Routine, Intra-op ceFAZolin (ANCEF) injection Given 03/12/2020 8:58 AM CDT 0.1 mL Left Eye PRN, Starting Clare 03/12/20 at 0858, Until Discontinued, NEHEMIAS, Intra-op dexamethasone (DECADRON PHOSPHATE) Given 03/12/2020 8:58 AM CDT 0.1 mL Left Eye injection PRN, Starting Clare 03/12/20 at 0858, Until Discontinued, Routine, Intra-op DUOVISC (DUOVISC VISCO ELASTIC) 3 %-4 %(0.5 Given 03/12/2020 8:58 AM CDT 1 Kit mL) 1 % (0.55 mL) intraocular injection PRN, Starting Clare 03/12/20 at 0858, Until Discontinued, Routine, Intra-op EPINEPHrine (PF) 1:1,000 (1 mg/mL) Given 03/12/2020 8:58 AM CDT 0.5 mL Left Eye (ADRENALIN (PF)) injection PRN, Starting Clare 03/12/20 at 0858, Until Discontinued, Routine, Intra-op eye block syringe 11 mL Given 03/12/2020 8:43 AM CDT 2 mL PRN, Starting Clare 03/12/20 at 0843, Until Discontinued, Intra-op gentamicin injection Given 03/12/2020 8:59 AM CDT 0.1 mL Left Eye PRN, Starting Clare 03/12/20 at 0859, Until Discontinued, NEHEMIAS, Intra-op lactated ringers IV infusion 1,000 mL at 50 mL/hr, 1,000 mL, IV Infusion, CONT INUOUS, Starting Clare 03/12/20 at 0930, Until Discontinued, Routine, PACU NaCl 0.9% (NS) injection Given 03/12/2020 8:59 AM CDT 10 mL PRN, Starting Clare 03/12/20 at 0859, Until Discontinued, Routine, Intra-op ocdpouqe-kxudjnjsz-vzfgbdkcwfhgh (MAXITROL) Given 02/18 8:59 AM 0.5 Inches 3.5 mg/g-10,000 unit/g-0.1 % ophthalmic CDT ointment PRN, Starting Clare 03/12/20 at 0859, Until Discontinued, Routine, Intra-op ondansetron (ZOFRAN (PF)) injection 4 mg 4 mg, Slow IV Push, PRN, 1 dose, Startin g Clare 03/12/20 at 0915, Until Discontinued, Routine, Nausea and Vomiting (N/V), PACU tetracaine (PONTOCAINE) 0.5 % ophthalmic Given 03/12/2020 9:00 AM CDT 3 Drops drops PRN, Starting Clare 03/12/20 at 0900, Until Discontinued, Routine, Intra-op water for irrigation irrigation Given 03/12/2020 8:59 AM CDT 30 mL Left Eye solution PRN, Starting Clare 03/12/20 at 0859, Until Discontinued, Routine, Intra-op Medication Order MAR Action Action Date Dose Rate Site lactated ringers IV infusion New Bag 03/12/2020 7:56 AM CDT 1,000 mL 20 mL/hr 1,000 mL at 20 mL/hr, 1,000 mL, IV Infusion, ONCE, 1 dose, Clare 03/12/20 at 0730, Routine, DSU Pre-op mydriatic #5 ophthalmic solution 0.5 mL Given 03/12/2020 7:56 A M CDT 0.5 mL syringe 0.5 mL, Left Eye, ONCE, 1 dose, Clare 03/12/20 at 0730, Routine documented in this encounter Insurance Payer Benefit Plan / Subscriber ID Effective Dates Phone Addre ss Type Group HUMANA - HUMANA [id number] 2019-[facility] MANAGED MEDICARE t FFS MEDICARE documented as of this encounter
--- OUTSIDE RECORDS SUMMARY | 2020-06-05 00:44 | XMS REPORT | Summary of Care ---
:1960 Author Organization [facility] - Health Address [address] [place] [address] Care Team Providers Name Role Phone Venice Lamb Primary Care Provider Reason for Visit Reason Comments LAB covid testing- SOB, dizzines s, diarrhea Encounter Details Date Type Department Care Team Description 05/25/2020 Laboratory Only [facility] Family Madina Kate, HOIST CYLINDER LOADER [id number] [place] [address] Exposure to Medicine - [facility], Ad[facility] Fam Pob I SARS-associated [address] [place] [address] coronaviru s ([address] Drive Dx) [place] [address] Allergies Active Allergy Reactions Severity Noted Date Comments Morphine Rash High 06/21/2019 Prochlorperazine Other - See comments High 05/05/2016 "epps llucinations" "hallucinations " documented as of this encounter (statuses as of 05/25/2020) Medications Medication Sig Dispensed Refills Start End [...] as of this encounter (statuses as of 05/25/2020) Active Problems Problem Noted Date Rash 05/29/2017 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 documented as of this encounter Last Filed Vital Signs Not on filedocumented in this encounter Nursing Notes Lenka Zhang MA - 05/25/2020 1:20 PM CSTYasmeen Zimmerman is a 60 year old female here for COVID Screening with a Nasopharyngeal Swab All droplet and contact precautions taken with appropriate PPE worn while interacting with patient. ? Goggles ? N95 Mask ? Gloves ? Gown RR 18 Pulse Ox 98% Patient educated on plan of care for visit, swabbing technique, risks and benefits of test and length of time to receive results. Verbal consent obtained to perform test. CDC Fact Sheet for Patients nCoV Diagnostic Panel dated 09/01/2019 and Factsheet What to Do if Sick with COVID 19 08/12/19 provided. Patient swabbed per appropriate nasopharyngeal technique, and patient tolerated well. Patient was discharged from the testing clinic in stable condition. Lenka Pennington MA 05/25/2020 1:29 PM Bilate nares swabbed during COVID19 nasopharyngeal swab. TTER HAND documented in this encounter Plan of Treatment Name Type Priority Associated Diagnoses Order S chedule COVID-19 (MOLECULAR LAB Routine Exposure to Expected : 05/25/2020, TESTING SARS-associated Expires: 021 NUCLEIC ACID coronavirus AMPLIFICATION) Health Maintenance Due Date Last Done Comments HEPATITIS C (HCV) SCREEN 1960 HgA1C 02/06/1960 EYE EXAM 1969 LDL-C 1969 URINE MICROALBUMIN 1969 FOOT EXAM 1977 PAP SMEAR 02/06/1980 Breast Cancer Screening (MAMMOGRAM) 1999 COLON CANCER SCREENING ANNUAL FIT/FOBT 2009 COLON CANCER SCREENING FIT DNA EVERY 3 2009 YEARS COLON CANCER SCREENING SIGMOIDOSCOPY EVERY 2009 5 YEARS Zoster Recombinant Vaccine (SHINGRIX) (1 2009 of 2) PNEUMOCOCCAL 0-64 YEARS COMBINED SERIES (2 05/01/201805/01 of 3 - PCV13) INFLUENZA VACCINE (#1) 2020 05/15/2018, 05/01/2017 CREATININE (SERUM) 03/09/2021 03/09/2020, 05/27/2016 Depression Screening 03/12/2021 03/12/2020 COLONOSCOPY 03/19/2024 03/19/2014 Colorectal Cancer Screening 03/19/2024 DTaP,Tdap,and Td Vaccines (2 - Td) 05/01/2027 05/01/2017 documented as of this encounter Implants Implanted Type Area [employer] Intern Device Shelf Model / Serial Identifier Expiration / Lot Date Lens, Omkar #[id number] - [id number] LENS Left: Eye Omkar 02/17/2024 [id number] / Implanted: Qty: 1 on 03/12/2020 by Zeus Samaniego MD at [facility] 2 [id number] / N/A documented as of this encounter Results Not on filedocumented in this encounter Visit Diagnoses Diagnosis Exposure to SARS-associated coronavirus - Primary documented in this encounter Additional Health Concerns Infection Onset Date Last Indicated Resolved Time COVID-19 Rule Out 05/25/2020 05/25/2020 documented as of this encounter Insurance Payer Benefit Plan / Subscriber ID Effective Dates Phone Addre ss Type Group HUMANA - HUMANA [id number] [facility] Adv MANAGED MEDICARE t FFS MEDICARE documented as of this encounter
[2020-06-05] MEDS ORDERED: dexAMETHasone 10 MG/ML VIAL ONE (02:12)
[2020-06-05] MEDS ORDERED: NA CHLORIDE 0.9% 1,000 ML ONE (02:12)
[2020-06-05 02:21] LABS: Absolute Lymphocytes (CBC) 1.1 K/uL (0.7-4.9); Basophils % 0.5 % (0-1.3); Hematocrit 40.9 % (36.0-45.0); Lymphocytes % 17.6 % (15.3-44.8); MPV 8.2 fL (7.6-11.3); Protime INR 1.03; RBC Red Blood Cell Count 4.69 M/uL (3.86-4.86)
[2020-06-05 02:40] LABS: ALT/SGPT 34 U/L (12-78); AST/SGOT 27 U/L (15-37); Albumin 3.4 g/dL (3.4-5.0); Alkaline Phosphatase 103 U/L (45-117); BUN Blood Urea Nitrogen 14 mg/dL (7-18); Bicarbonate 26 mmol/L (21-32); Bilirubin Direct 0.2 mg/dL (0-0.2); Bilirubin Total 0.5 mg/dL (0.2-1.0); Ferritin 151.4 ng/mL (8-388); Glucose Level 271 mg/dL (74-106); Magnesium 1.8 mg/dL (1.8-2.4); NT PRO-BNP 74 pg/mL (<125); Potassium 3.6 mmol/L (3.5-5.1); Protein, Total 7.7 g/dL (6.4-8.2); Sodium Level 134 mmol/L (136-145); Troponin (Emerg Dept Use Only) < 0.02 ng/mL (0.0-0.045)
[2020-06-05] MEDS ORDERED: AZITHROMYCIN 500 MG INJ IVPB ONE (03:19)
[2020-06-05] MEDS ORDERED: CEFTRIAXONE/SWI 1gm 1 GM/10 ML SYR ONE (03:20)
[2020-06-05] MEDS ORDERED: NA CHLORIDE 0.9% 250 ML ONE (03:20)
[2020-06-05] MEDS ORDERED: ENOXAPARIN 100 MG/ML SYR SQ ONE (03:20)
--- NOTE | 2020-06-05 05:46 | P.HP ---
Certification for Inpatient Patient admitted to: Inpatient With expected LOS: >2 Midnights Patient will require the following post-hospital care: None Practitioner: I am a practitioner with admitting privileges, knowledge of patient current condition, hospital course, and medical plan of care. Services: Services provided to patient in accordance with Admission requirements found in Title 42 Section 412.3 of the Code of Federal Regulations <Abhishek Lyon - Last Filed: 06/05/20 05:41> Patient History Date of Service: 06/05/20 Primary Care Provider: Zainab SOTO Reason for admission: COVID 19, COVID pneumonia, Hypoxia History of Present Illness: This is a 60-year-old female with a history of bhv-soxjrhu-hguextttg diabetes mellitus and hypertension that presented to the emergency room for increased shortness of breath that has started over the past 24 hr but progressively worsened. Patient stated that she was tested for covid about a week ago and was positive. Since then she has had cough, fever and now increase shortness of breath. Patient stated that she had a home pulse oximeter and was reading in the 80s this evening. At that time between that and having increased shortness of breath decided to come to the emergency room. Patient was worked up in the emergency room tonight for hypoxia. Patient did have a CT scan showing ground- glass up a cities and infiltrates bilaterally consistent with COVID pneumonia. White cell count was 6.0. Sodium 134, potassium 3.6, chloride 98, bicarb 26, BUN 14, creatinine 0.72, glucose 271. CRP was elevated at 48. No other acute findings on labs. Patient also with a history of hypogammaglobulonemia. Has had to have IVIG infusions in past. Medicine was consulted at that time for admission for viral pneumonia and hypoxia Home medications list reviewed: Yes - Past Medical/Surgical History Diabetic: Yes - Family History Family History: Reviewed- Non-Contributory - Social History Smoking Status: Never smoker Smoking therapy provided: No Alcohol use: No CD- Drugs: No Caffeine use: No Place of Residence: Home <Abhishek Lyon - Last Filed: 06/05/20 05:41> Date of Service: 06/05/20 <dandy castro - Last Filed: 06/05/20 08:06> Allergies morphine Allergy (Verified 06/05/20 07:17) Anaphylaxis adhesive tape Adverse Reaction (Verified 12/01/17 11:07) Rash prochlorperazine [From Compazine] Adverse Reaction (Verified 06/05/20 07:17) Nausea/Vomiting Home Medications: Amlodipine Besylate 5 mg PO DAILY AFTER SUPPER 12/01/17 Cholecalciferol (Vitamin D3) [Vitamin D3] 1,000 unit PO DAILY 12/01/17 Guaifenesin [Mucinex] 600 mg PO DAILY 12/01/17 Lansoprazole [Prevacid] 30 mg PO DAILY 12/01/17 Levothyroxine [Synthroid] 50 mcg PO DAILY 12/01/17 Liothyronine Sodium [Cytomel] 25 mcg PO DAILY 12/01/17 Loratadine [Claritin] 10 mg PO DAILY 12/01/17 Losartan Potassium 100 mg PO DAILY AFTER SUPPER 12/01/17 Metformin HCl [Glucophage] 1,000 mg PO DAILY AFTER SUPPER 12/01/17 Metoprolol Succinate [Toprol Xl] 50 mg PO DAILY AFTER SUPPER 12/01/17 Propranolol [Inderal LA] 60 mg PO DAILY AFTER SUPPER 12/01/17 Turmeric Root Extract [Turmeric] 500 mg PO DAILY 12/01/17 Codeine/APAP [Tylenol W/Codeine #3 tab] 1 tab PO Q4HP PRN #15 tab 12/04/17 Review of Systems General: Fever Eyes: Unremarkable ENT: Unremarkable Respiratory: Cough, Shortness of Breath, SOB with Excertion Cardiovascular: Unremarkable Gastrointestinal: Unremarkable Genitourinary: Unremarkable Musculoskeletal: Unremarkable Integumentary: Unremarkable Neurological: Unremarkable Lymphatics: Unremarkable <Abhishek Lyon - Last Filed: 06/05/20 05:41> Physical Examination - Vital Signs Temperature: 97.9 F Blood Pressure: 125/81 Pulse: 90 Respirations: 18 Pulse Ox (%): 92 (Room air) - Physical Exam General: Alert, In no apparent distress, Oriented x3, Cooperative HEENT: PERRLA, Mucous membr. moist/pink, EOMI Neck: Supple, 2+ carotid pulse no bruit, JVD not distended, No Thyromegaly Respiratory: Clear to auscultation bilaterally, Normal air movement Cardiovascular: No edema, Normal pulses, Regular rate/rhythm, Normal S1 S2, No gallops, No rubs, No murmurs Capillary refill: <2 Seconds Gastrointestinal: Hypoactive, Soft and benign, Non-distended, No ascites, No tenderness, No masses, No rebound, No guarding Musculoskeletal: No clubbing, No swelling, No contractures, No erythema, No tenderness, No warmth Integumentary: No rashes, No breakdown, No significant lesion, No tenderness/swelling, No erythema, No warmth, No cyanosis Neurological: Normal speech, Normal strength at 5/5 x4 extr, Normal tone, Sensation intact, Cranial nerves 3-12 intact, Normal affect Lymphatics: No axilla or inguinal lymphadenopathy - Studies Laboratory Data (last 24 hrs) 06/05/20 01:50: PT 12.1, INR 1.03 06/05/20 01:50: WBC 6.0, Hgb 14.0, Hct 40.9, Plt Count 206 06/05/20 01:50: Sodium 134 L, Potassium 3.6, BUN 14, Creatinine 0.72, Glucose 27 1 H, Magnesium 1.8, Total Bilirubin 0.5, AST 27, ALT 34, Alkaline Phosphatase 103 <Abhishek Lyon - Last Filed: 06/05/20 05:41> - Studies Laboratory Data (last 24 hrs) 06/05/20 01:50: PT 12.1, INR 1.03 06/05/20 01:50: WBC 6.0, Hgb 14.0, Hct 40.9, Plt Count 206 06/05/20 01:50: Sodium 134 L, Potassium 3.6, BUN 14, Creatinine 0.72, Glucose 271 H, Magnesium 1.8, Total Bilirubin 0.5, AST 27, ALT 34, Alkaline Phosphatase 103 <dandy castro - Last Filed: 06/05/20 08:06> Assessment and Plan - Problems (Diagnosis) (1) Non-insulin dependent diabetes mellitus Current Visit: Yes Status: Chronic (2) Hypertension Current Visit: Yes Status: Chronic Qualifiers: Hypertension type: essential hypertension Qualified Code(s): I10 - Essential (primary) hypertension (3) COVID-19 Current Visit: Yes Status: Acute (4) Pneumonia due to COVID-19 virus Current Visit: Yes Status: Acute (5) Hypoxia Current Visit: Yes Status: Acute - Plan 1. Patient will be placed on coated floor for further assessment of her hypoxia and covid pneumonia 2. Patient started on steroids and rent is severe for her viral process 3. Will monitor pulse oximetry continuously 4. Patient put on a moderate sliding scale and she has diabetes and will be given steroids as well 5. Pulmonology has been consulted for further evaluation and treatment 6. We will treat blood pressures as needed for systolic greater than 160 and d iastolic greater than 110 Patient was feeling much better in the emergency room. I suspect if patient continues to do well over the next day or 2 she should be able to go home on steroids. Will continue to monitor the next day or 2 and await for pulmonology to consult and for any further recommendations. Discharge Plan: Home Plan to discharge in: 48 Hours - Advance Directives Does patient have a Living Will: No Does patient have a Durable POA for Healthcare: No - Code Status/Comfort Care Code Status Assessed: No Critical Care: No Time Spent Managing Pts Care (In Minutes): 70 <Abhishek Lyon - Last Filed: 06/05/20 05:41> Physician Review: Patient Assessed, Agree with Above Assessment and Plan Physician Review Additional Text: COVID pneumonia. History of hypogammaglobinemia. Plan: High risk of progression. IV steroid Remdesivir Glucose management with insulin sliding scale and Lantus. Oxygen supplementation. Pulmonary consult. <dandy castro - Last Filed: 06/05/20 08:06>
[2020-06-05] MEDS ORDERED: D50W 25 GM/50 ML SYRINGE IV PRN (06:22)
[2020-06-05] MEDS ORDERED: Remdesivir 200 MG in NA CHLORIDE 0.9% 250 ML IV ONE (06:22)
[2020-06-05] MEDS ORDERED: ACETAMINOPHEN 325 MG TABLET PO PRN (06:22)
[2020-06-05] MEDS ORDERED: GLUCAGON 1 MG/VIAL IM PRN (06:22)
[2020-06-05 06:23] VITALS: BMI 33.2
[2020-06-05 07:30] VITALS: O2SAT 98
[2020-06-05] MEDS: INSULIN -REGULAR HUMAN 50 UNIT/0.5 ML ML SQ SCH ×2 (07:30→11:30)
--- NOTE | 2020-06-05 07:47 | RAD REPORT ---
EXAM DESCRIPTION: RAD - Chest Single View - 06/05/2020 7:36 am CLINICAL HISTORY: COUGH, DYSPNEA COMPARISON: April 2019 TECHNIQUE: AP portable chest image was obtained 06/05/2020 7:36 am . FINDINGS: Lung volumes are low. Patient has a large unilateral breast implant on the left. This crea [place] significant asymmetry in the soft tissue density overlying the chest. This is exaggerated by the shallow inspiration and portable technique. Numerous surgical clips are present near the right axilla . Right mastectomy changes are evident. Trachea is midline. No dense mass or consolidation. Patchy la teral left lung field infiltrates are suspected. This would be a pattern commonly seen with COVID-19 pneumonia. No clear infiltrative process in the right lung field. No failure or volume overload. Hear t and vasculature are normal. No measurable pleural effusion and no pneumothorax. No acute bony abnor mality seen. No acute aortic findings suspected. IMPRESSION: Patchy lung parenchymal opacification peripheral lower left lung field. Finding is accen tuated by the overlying breast implant density. Left lung field finding is a nonspecific infectious process. Given the patient history, COVID-19 pneu monia is certainly possible.
[2020-06-05] MEDS ORDERED: APIXABAN 5 MG TABLET PO SCH (09:00)
[2020-06-05] MEDS ORDERED: METHYLPREDNISOLONE 40 MG INJ IV SCH (09:00)
[2020-06-05] MEDS ORDERED: FAMOTIDINE 20 MG/2 ML VIAL IV SCH (09:00)
[2020-06-05] MEDS ORDERED: INSULIN GLARGINE 100 UNITS/ML SQ SCH (09:00)
[2020-06-05] MEDS ORDERED: APIXABAN 2.5 MG TABLET PO SCH (09:00)
--- NOTE | 2020-06-05 10:28 | P.CNS ---
Date of Consult: 06/05/20 Primary Care Provider: Zainab SOTO Chief Complaint: COVID 19, COVID pneumonia, Hypoxia History of Present Illness: Patient is 60 years of age wheezes to diabetes hypertension admitted with worsening dyspnea diagnosed with richardson virus a week ago was prescribed prednisone 10 mg twice a day developed more shortness of breath admitted here from the emergency room he is doing better room-air sats a satisfactory Allergies morphine Allergy (Verified 06/05/20 07:17) Anaphylaxis adhesive tape Adverse Reaction (Verified 12/01/17 11:07) Rash prochlorperazine [From Compazine] Adverse Reaction (Verified 06/05/20 07:17) Nausea/Vomiting Home Medications: Amlodipine Besylate 5 mg PO DAILY AFTER SUPPER 12/01/17 Cholecalciferol (Vitamin D3) [Vitamin D3] 1,000 unit PO DAILY 12/01/17 Guaifenesin [Mucinex] 600 mg PO DAILY 12/01/17 Lansoprazole [Prevacid] 30 mg PO DAILY 12/01/17 Levothyroxine [Synthroid] 50 mcg PO DAILY 12/01/17 Liothyronine Sodium [Cytomel] 25 mcg PO DAILY 12/01/17 Loratadine [Claritin] 10 mg PO DAILY 12/01/17 Losartan Potassium 100 mg PO DAILY AFTER SUPPER 12/01/17 Metformin HCl [Glucophage] 1,000 mg PO DAILY AFTER SUPPER 12/01/17 Metoprolol Succinate [Toprol Xl] 50 mg PO DAILY AFTER SUPPER 12/01/17 Propranolol [Inderal LA] 60 mg PO DAILY AFTER SUPPER 12/01/17 Turmeric Root Extract [Turmeric] 500 mg PO DAILY 12/01/17 Codeine/APAP [Tylenol W/Codeine #3 tab] 1 tab PO Q4HP PRN #15 tab 12/04/17 - Past Medical/Surgical History Diabetic: Yes -: HTN -: NIDDM -: lymphedema -: brain anuerysm w/repair -: breast cancer 20 yrs ago -: chronic diarrhea and contstipation -: rt masectomy -: c-sect -: anuerysm repair - Social History Alcohol use: No CD- Drugs: No Caffeine use: No Place of Residence: Home Review of Systems General: Weakness Respiratory: Cough, Shortness of Breath Physical Examination Temp Pulse Resp BP Pulse Ox 96.8 F 88 16 126/67 96 06/05/20 08:00 06/05/20 08:00 06/05/20 08:00 06/05/20 08:00 06/05/20 08:00 Laboratory Data (last 24 hrs) 06/05/20 01:50: PT 12.1, INR 1.03 06/05/20 01:50: WBC 6.0, Hgb 14.0, Hct 40.9, Plt Count 206 06/05/20 01:50: Sodium 134 L, Potassium 3.6, BUN 14, Creatinine 0.72, Glucose 271 H, Magnesium 1.8, Total Bilirubin 0.5, AST 27, ALT 34, Alkaline Phosphatase 103 - Problems (1) Pneumonia due to COVID-19 virus Current Visit: Yes Status: Acute Plan: Patient is 60 years of age admitted with pneumonia due to richardson virus patient is doing better CRP is less than 50 room-air saturation is satisfactory plan to discharge on prednisone 20 mg twice a day for a week and then 10 twice a day patient to have a telephone visit with me 2 weeks minimal changes on CT scan does not qualify for home O2
--- NOTE | 2020-06-05 11:33 | P.DS ---
Admission Date: 06/05/20 Discharge Date: 06/05/20 Primary Care Provider: Zainab SOTO Disposition: ROUTINE DISCHARGE Discharge Condition: FAIR Reason for Admission: COVID 19, COVID pneumonia, Hypoxia - Problems (1) COVID-19 Status: Acute (2) Pneumonia due to COVID-19 virus Status: Acute (3) Hypertension Status: Chronic Qualifiers: Hypertension type: essential hypertension Qualified Code(s): I10 - Essential (primary) hypertension (4) Non-insulin dependent diabetes mellitus Status: Chronic Brief History of Present Illness: 60-year-old woman with a history of noninsulin dependent diabetes presented to the emergency department with a complaint of progressive shortness of breath. Patient states that she tested positive for COVID 19 1 week ago. She reports she was hypoxic without oxygen saturation of 80% at home. CT chest done in the emergency department demonstrated bilateral patchy opacities. She did not meet criteria for sepsis. There was a question of history of hypogammaglobinemia. Patient was hospitalized for further management of COVID pneumonia. Hospital Course: Patient admitted to the medical floor and started on IV steroid, IV Remdesivir. She did not require oxygen. Her oxygen saturation was 95% on room air. She was not hypoxic on ambulation. Patient seen by pulmonary Dr. Andino. Patient with minimal symptoms. Mildly elevated CRP. She was considered stable for discharge and follow up with Dr. Andino within 1 week. She is informed to return to the emergency department for severe shortness of breath at rest. Vital Signs/Physical Exam: Temp Pulse Resp BP Pulse Ox 96.8 F 88 16 126/67 96 06/05/20 08:00 06/05/20 08:00 06/05/20 08:00 06/05/20 08:00 06/05/20 08:00 General: Alert, In no apparent distress Respiratory: Clear to auscultation bilaterally, Normal air movement Cardiovascular: No edema, Regular rate/rhythm, Normal S1 S2 Gastrointestinal: Soft and benign, Non-distended Musculoskeletal: No swelling Integumentary: No rashes Neurological: Normal strength at 5/5 x4 extr Laboratory Data at Discharge: WBC 6.0 K/uL (4.3-10.9) 06/05/20 01:50 Hgb 14.0 g/dL (12.0-15.0) 06/05/20 01:50 Hct 40.9 % (36.0-45.0) 06/05/20 01:50 Plt Count 206 K/uL (152-406) 06/05/20 01:50 PT 12.1 SECONDS (9.5-12.5) 06/05/20 01:50 INR 1.03 06/05/20 01:50 Sodium 134 mmol/L (136-145) L 06/05/20 01:50 Potassium 3.6 mmol/L (3.5-5.1) 06/05/20 01:50 BUN 14 mg/dL (7-18) 06/05/20 01:50 Creatinine 0.72 mg/dL (0.55-1.3) 06/05/20 01:50 Glucose 271 mg/dL (74-106) H 06/05/20 01:50 Magnesium 1.8 mg/dL (1.8-2.4) 06/05/20 01:50 Total Bilirubin 0.5 mg/dL (0.2-1.0) 06/05/20 01:50 AST 27 U/L (15-37) 06/05/20 01:50 ALT 34 U/L (12-78) 06/05/20 01:50 Alkaline Phosphatase 103 U/L (45-117) 06/05/20 01:50 Home Medications: Amlodipine Besylate 5 mg PO DAILY AFTER SUPPER 12/01/17 Cholecalciferol (Vitamin D3) [Vitamin D3] 1,000 unit PO DAILY 12/01/17 Guaifenesin [Mucinex] 600 mg PO DAILY 12/01/17 Lansoprazole [Prevacid] 30 mg PO DAILY 12/01/17 Levothyroxine [Synthroid*] 50 mcg PO DAILY 12/01/17 Liothyronine Sodium [Cytomel] 25 mcg PO DAILY 12/01/17 Loratadine [Claritin*] 10 mg PO DAILY 12/01/17 Losartan Potassium 100 mg PO DAILY AFTER SUPPER 12/01/17 Metformin HCl [Glucophage] 1,000 mg PO DAILY AFTER SUPPER 12/01/17 Metoprolol Succinate [Toprol Xl*] 50 mg PO DAILY AFTER SUPPER 12/01/17 Turmeric Root Extract [Turmeric] 500 mg PO DAILY 12/01/17 Codeine/APAP [Tylenol #3*] 1 tab PO Q4HP PRN #15 tab 12/04/17 predniSONE [Deltasone*] 20 mg PO BID #42 tab 06/05/20 New Medications: predniSONE [Deltasone*] 20 mg PO BID #42 tab Patient Discharge Instructions: Please return to the ER for evaluation if you become very short of breath at rest. Diet: AHA Activity: Ad clara Followup: Venice Lamb [facility] [Primary Care Provider] -
[2020-06-05 11:34] VITALS: BP 152/88; TEMP 97.3
[2020-06-06] MEDS ORDERED: Remdesivir 100 MG in NA CHLORIDE 0.9% 250 ML IV SCH (09:00)
--- NOTE | 2020-06-07 16:19 | RAD REPORT ---
EXAM DESCRIPTION: CT - Chest For Pe Angio - 06/05/2020 6:39 am CLINICAL HISTORY: Dyspnea , COVID, hypertension COMPARISON: None. TECHNIQUE: Chest CTA axial images acquired with IV contrast. Coronal and sagittal CTA MIPs and MPRs created. Exam performed according to departmental dose-optimization program which includes automated exposure control, adjustment of mA and/or kV according to patient size, and/or use of iterative recon struction technique. FINDINGS: Heart size upper limits normal. No pericardial effusion. No evidence of pulmonary embolism. Thoracic aorta unremarkable without evidence of dissection, aneurysm, or atherosclerotic plaque. Moderate hazy predominantly peripheral-located bilateral lung opacities. No pleural effusion or pneumothorax. Partially-imaged upper abdomen shows moderate diffuse fatty infiltration of liver. Left breast silicone implant. No fracture. IMPRESSION: 1. Moderate, hazy, predominantly peripheral-located, bilateral lung opacities. Causes include pulmonary edema, subsegmental atelectasis, scar/fibrosis, and atypical infection (incl uding viral & COVID). COVID-19 Pneumonia Imaging Classification: Typical Appearance \X201C\Commonly reported imaging features of (COVID-19 or viral) pneumonia are present. Other process es such as influenza pneumonia and organizing pneumonia, as can be seen with drug toxicity and connec tive tissue disease, can cause a similar imaging pattern. PneTyp\X201D 2. No CT evidence of pulmonary embolism. Electronically signed by: Edi Issa MD 06/05/2020 4:12 AM THERAPEUTIC SUPPORT STAFF Due to temporary technical issues with the PACS/Fluency reporting system, reports are being signed by the in house radiologists without review as a courtesy to insure prompt reporting. The interpreting radiologist is fully responsible for the content of the report.
== END 2020-06-05 12:21 | disposition home or self-care (01) | DRG 177 ==
LOC: ER 23:24 → ERHOLD 06-05 04:36 → 4TH 06-05 05:39
PROVIDERS: ADMIT Internal Medicine; ATTEND Internal Medicine
DX: U07.1 COVID-19 (principal); J12.89 Other viral pneumonia; E11.65 Type 2 diabetes mellitus with hyperglycemia; I10 Essential (primary) hypertension; Z88.5 Allergy status to narcotic agent; Z88.8 Allergy status to other drugs, medicaments and biological substances; Z91.048 Other nonmedicinal substance allergy status; Z79.890 Hormone replacement therapy; Z79.84 Long term (current) use of oral hypoglycemic drugs; Z79.899 Other long term (current) drug therapy; Z90.11 Acquired absence of right breast and nipple; Z85.3 Personal history of malignant neoplasm of breast; Z79.52 Long term (current) use of systemic steroids
CPT/HCPCS: 36415; 71045; 71275; 80048; 80076; 82728; 82947; 83036; 83735; 83880; 84484; 85025; 85610; 86140; 87040; 93005; 94760; J0456; J0696; J1100; J1650; J1815; J2920; J7030; J7050; Q9967; U0003